=== PATIENT | male | born 1975 | race Caucasian/White ===

== ENCOUNTER 2018-07-21 14:14 | Emergency (ER) | payer OTHER ==
--- NOTE | 2018-07-21 14:45 | PDOC ---
Rapid Medical Evaluation Chief Complaint: Chest Pain Time Seen by Provider: 07/21/18 14:39 Medical Evaluation: 07/21/18 14:40 42 year with shortness of breath, headache, dizziness and chest pain x1 hour prior to arrival. + nausea+ smoker. took 3 aspirin prior to arrival. last echo 2 weeks ago normal PE: patient alert ox3. breath sounds clear, regular rate A: chest pain P'; labs ekg chest xray patient to the ER for further management of care. Discharge Disposition - Diagnosis Chest pain at rest - Referrals - Patient Instructions - Post Discharge Activity
[2018-07-21 14:46] VITALS: TEMP 98.6; BMI 35.9
[2018-07-21 15:38] LABS: BASO % 0.4 % (0-2.0); EOS % 1.6 % (0-4.5); HEMATOCRIT 38.3 % (35.4-49); HEMOGLOBIN 13.4 GM/dL (11.7-16.9); LYMPH % 18.9 % (8-40); MCHC 34.9 g/dl (32.0-35.9); MEAN PLT VOLUME 8.1 fl (7.5-11.1); MONO % 6.6 % (3.8-10.2); NEUT % 72.5 % (42.8-82.8); PLATELET COUNT 370 K/MM3 (134-434); RBC 4.61 M/mm3 (4.00-5.60); RDW 13.9 % (11.9-15.9); WHITE BLOOD COUNT 9.1 K/mm3 (4.0-10.0)
--- NOTE | 2018-07-21 15:50 | PDOC ---
History of Present Illness - General Chief Complaint: Chest Pain Stated Complaint: CHEST PAIN Time Seen by Provider: 07/21/18 14:39 History Source: Patient Exam Limitations: No Limitations - History of Present Illness Initial Comments: 07/21/18 15:45 Pt is a 42yo m PMH of newly diagnosed HTN presenting to ED with sudden onset lightheadedness, SOB and L sided chest pain 2 hours ago. Pt said he was walking in the grocery store when he felt lightheaded, tried to take a deep breath but felt short of breath. [place] a sharp substernal and L sided chest pain and R sided pain. Pt went home and took 3 ASA (does not know strength). Pt said he started bp meds 3-4 days ago along with cholesterol medication. He does not know the name of his medications. Pt now admits to lightheadedness, chest discomfort and headache. He denies cough, fever/chills, recent illnesses, abdominal pain, n/v/d, numbness/tingling, urinary symptoms. Denies recent travel , swelling or pain in legs, hemoptysis, history of clots, family history of cardiac problems. Pt quit smoking 3 days ago, used to smoke 1ppd. PMD: [place] PMH: htn, hld? PSH: none Meds: bp, statin Social: 1ppd Allergies: nkda Past History - Past Medical History Allergies/Adverse Reactions: Allergies Allergy/AdvReac Type Severity Reaction Status Date / Time No Known Allergies Allergy Verified 07/21/18 14:42 COPD: No HTN: Yes Hypercholesterolemia: Yes - Suicide/Smoking/Psychosocial Hx Smoking History: Current every day smoker Number of Cigarettes Smoked Daily: 20 Information on smoking cessation initiated: Yes *Physical Exam - Vital Signs Last Vital Signs Temp Pulse Resp BP Pulse Ox 98.6 F 72 22 H 139/66 100 07/21/18 14:42 07/21/18 14:42 07/21/18 14:42 07/21/18 14:42 07/21/18 15:29 Heart Score/ECG Review - History History: Highly suspicious - Electrocardiogram EKG: Normal - Age Age: </= 45 - Risk Factors Risk Factors Heart Score: Yes Hx Hypercholesterolemia, Yes Hx Hypertension, Yes Smoking History Based on the list above the patient has:: >/=3 risk factors or Hx atherosclerotic disease - Troponin Troponin: </= normal limit - Score Heart Score - Total: 4 ED Treatment Course - LABORATORY CBC & Chemistry Diagram: 07/21/18 15:20 07/21/18 15:20 - ADDITIONAL ORDERS Additional order review: 07/21/18 15:20 RBC 4.61 MCV 83.0 MCHC 34.9 RDW 13.9 MPV 8.1 Neutrophils % 72.5 Lymphocytes % 18.9 Monocytes % 6.6 Eosinophils % 1.6 Basophils % 0.4 Medical Decision Making - Medical Decision Making 07/21/18 15:50 t is a 42yo m PMH of newly diagnosed HTN presenting to ED with sudden onset lightheadedness, SOB and L sided chest pain 2 hours ago AMA *DC/Admit/Observation/Transfer Diagnosis at time of Disposition: Chest pain at rest - Referrals Referrals: ON STAFF,NOT [Primary Care Provider] - - Patient Instructions - Post Discharge Activity
[2018-07-21 16:11] LABS: ALBUMIN 3.5 g/dl (3.4-5.0); ALK PHOS 67 U/L (45-117); ANION GAP 7 MMOL/L (8-16); BILIRUBIN,TOTAL 0.3 mg/dL (0.2-1); BLOOD UREA NITROGEN 11 mg/dL (7-18); CALCIUM 8.7 mg/dL (8.5-10.1); CHLORIDE 105 mmol/L (98-107); CO2 26 mmol/L (21-32); CREATININE 1.1 mg/dL (0.55-1.3); GLUCOSE,RANDOM 112 mg/dL (74-106); POTASSIUM 4.3 mmol/L (3.5-5.1); SGOT/AST 16 U/L (15-37); SGPT/ALT 31 U/L (13-61); SODIUM 138 mmol/L (136-145); TOT PROT 6.3 g/dl (6.4-8.2)
[2018-07-21 16:15] LABS: INR 1.02 (0.83-1.09)
--- NOTE | 2018-07-21 16:35 | PDOC ---
Attending Attestation - HPI HPI: 07/21/18 17:17 The patient is a 42 year old male with a significant PMH of hypertension and hyperlipidemia ( recently diagnosed) of who presents to the emergency department with chest pain since earlier today. The patient reports that he was at the grocery store about 3-4 hours ago when he felt a sudden onset of left sided chest pain. The patient states that his chest pain began on the left and then he also felt it on the right side. He reports some associated shortness of breath and lightheadedness with his chest pain. The patient states that he went home following his episode and took 4 aspirins with no apparent relief. He does endorse prior smoking by which he quit 3 days ago. The patient denies any other symptoms. He denies any fever, chills, nausea, vomiting, diarrhea, constipation or urinary symptoms. He denies any headache or dizziness. The patient denies any other complaints. Documentation prepared by Latrell Woods, acting as medical technicians for Natasha Iniguez MD. <Latrell Woods - Last Filed: 07/21/18 17:17> - Resident Resident Name: Nohemy Romero - ED Attending Attestation I have performed the following: I have examined & evaluated the patient, The case was reviewed & discussed with the resident, I agree w/resident's findings & plan, Exceptions are as noted - Physicial Exam PE: 07/21/18 17:03 GENERAL: The patient is in no acute distress, pt anxious appearing LUNGS: Breath sounds equal, clear to auscultation bilaterally. No wheezes, and no crackles. HEART:Regular rate and rhythm, normal S1 and S2 without murmur, rub or gallop. ABDOMEN: Soft, nontender, normoactive bowel sounds. No guarding, no rebound. No masses palpable. EXTREMITIES: Normal range of motion NEUROLOGICAL: Cranial nerves II through XII grossly intact. Normal speech. No focal neurological deficits. MUSCULOSKELETAL: Back non-tender to palpation, no CVA tenderness SKIN: Warm, Dry, normal turgor, no rashes or lesions noted. 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 07/21/18 16:37 Laboratory Tests 07/21/18 07/21/18 15:20 15:20 WBC 9.1 Hgb 13.4 Hct 38.3 Plt Count 370 BUN 11 Creatinine 1.1 Creatine Kinase 198 Troponin I < 0.02 07/21/18 17:03 Laboratory Tests 07/21/18 07/21/18 07/21/18 15:20 15:20 15:20 WBC 9.1 Hgb 13.4 Hct 38.3 Plt Count 370 D-Dimer < 200 Creatinine 1.1 Creatine Kinase 198 Creatine Kinase Index 0.7 CK-MB (CK-2) 1.5 Troponin I < 0.02 Ddimer negative Trop negative (would like to obs) Pt is not interested in staying in the hospital for observation He wants to leave and follow up with his PMD in [place] Pt also not willing to stay for repeat trop (he has to get home to care for his children) Pt understands our concern Will leave AMA but knows that he is able to return at any time for ANY concerns or complaints clinical impression: chest pain, initial presentation <Natasha Iniguez - Last Filed: 07/25/18 08:19> Heart Score/ECG Review - History History: Slightly suspicious - Electrocardiogram EKG: Normal - Age Age: </= 45 - Risk Factors Risk Factors Heart Score: Yes Hx Hypercholesterolemia, Yes Hx Hypertension, Yes Smoking History - Troponin Troponin: </= normal limit <Natasha Iniguez - Last Filed: 07/25/18 08:19>
[2018-07-21 17:31] VITALS: BP 127/75; PULSE 84
--- NOTE | 2018-07-22 12:44 | EKG ---
Test Reason : Blood Pressure : / mmHG Vent. Rate : 068 BPM Atrial Rate : 068 BPM P-R Int : 158 ms QRS Dur : 094 ms QT Int : 388 ms P-R-T Axes : 028 023 019 degrees QTc Int : 412 ms NORMAL SINUS RHYTHM NONSPECIFIC T WAVE ABNORMALITY NO PREVIOUS ECGS AVAILABLE Confirmed by ROGER BIRMINGHAM MD ([id number]) on 07/22/2018 12:43:50 PM Referred By: Confirmed By:ROGER BIRMINGHAM MD
== END 2018-07-21 17:33 | disposition home or self-care (01) ==
LOC: JER 14:14
DX: R07.9 Chest pain, unspecified (principal); I10 Essential (primary) hypertension; E78.00 Pure hypercholesterolemia, unspecified; F17.210 Nicotine dependence, cigarettes, uncomplicated
CPT/HCPCS: 36415; 71046-TC-FY; 80053; 82550; 82553; 83735; 84484; 85025; 85379; 85610; 93005; 93010; 99284-25